=== PATIENT | male | born 1955 | race Caucasian/White ===

== ENCOUNTER 2021-02-25 10:37 | Emergency (ER) | payer MEDICARE ==
[2021-02-25] MEDS ORDERED: TORADOL 10 MG T10 MG PO (17:03)
== END 2021-02-25 17:15 | disposition home or self-care (01) ==
LOC: ER1 10:37
DX: S39.012A Strain of muscle, fascia and tendon of lower back, initial encounter (principal); M47.896 Other spondylosis, lumbar region; M54.42 Lumbago with sciatica, left side; E11.9 Type 2 diabetes mellitus without complications; I10 Essential (primary) hypertension; Z87.442 Personal history of urinary calculi; Z88.5 Allergy status to narcotic agent; X50.1XXA Overexertion from prolonged static or awkward postures, initial encounter
CPT/HCPCS: 72131; 82962; 96372; 99284; J1100; J1885

== ENCOUNTER → 2021-03-02 | Outpatient (CLI) | payer MEDICARE ==
[~2021-03-02] MED LIST: TORADOL 10 MG T10 MG PO
== END ==
LOC: KOH-I 14:30
DX: M51.16 Intervertebral disc disorders with radiculopathy, lumbar region (principal); M48.061 Spinal stenosis, lumbar region without neurogenic claudication
CPT/HCPCS: 72148

== ENCOUNTER → 2021-04-09 | Outpatient (CLI) | payer MEDICARE ==
[~2021-04-09] MED LIST changes: +FIBER; +GABAPENTIN300 MG PO; +LOW DOSE ASPIRI81 MG PO; +MELOXICAM15 MG PO; +METOPROLOL SUCC25 MG PO; +MULTIVITAMIN; +OMEPRAZOLE20 MG PO; +TESTERONE; +TYLENOL EXTRA500 MG PO; +VITAMIN C1000 MG PO
== END ==
LOC: CT 13:48
DX: R91.1 Solitary pulmonary nodule (principal)
CPT/HCPCS: 71270; Q9967

== ENCOUNTER → 2021-04-22 | Outpatient (CLI) | payer MEDICARE ==
[2021-04-22 14:15] LABS: HEMOGLOBIN 10.1 gm/dl (14.0-17.5); RED BLOOD COUNT 3.3 M/UL (4.20-5.50); WHITE BLOOD COUNT 13.7 K/UL (4.5-11.0)
[2021-04-22 14:33] LABS: BUN/CREATININE RATIO 13 (0-10)
== END ==
LOC: LAB 13:49
PROVIDERS: Internal Medicine
DX: D64.9 Anemia, unspecified (principal); R79.89 Other specified abnormal findings of blood chemistry
CPT/HCPCS: 36415; 80053; 85025

== ENCOUNTER → 2021-10-12 | Outpatient (CLI) | payer MEDICARE | LOC: CT 08:00 | DX: R91.1 Solitary pulmonary nodule (principal) | CPT/HCPCS: 71270; Q9967 ==